=== PATIENT | female | born 1960 | race Caucasian/White ===

== ENCOUNTER 2023-12-30 18:23 | Emergency (ER) | payer SELFPAY ==
[2023-12-30 18:35] VITALS: BP 104/72; PULSE 106; RESP 17; TEMP 37; O2SAT 97; BMI 37.7
--- NOTE | 2023-12-30 18:59 | CTR_ITS ---
PROCEDURE INFORMATION: Exam: CT Head Without Contrast Exam date and time: 12/30/2023 7:11 PM Age: 63 years old Clinical indication: Pain; Headache; Patient HX: [place]TH with general weakness; Additional info: Confusion, headache TECHNIQUE: Imaging protocol: Computed tomography of the head without contrast. Radiation optimization: All CT scans at this facility use at least one of these dose optimization techniques: automated exposure control; mA and/or kV adjustment per patient size (includes targeted exams where dose is matched to clinical indication); or iterative reconstruction. COMPARISON: No relevant prior studies available. RADIATION DOSE METRICS: Total DLP (mGy-cm): 992.48 FINDINGS: Brain: No hemorrhage. No edema. Mild diffuse cerebral atrophy and sequela of chronic small vessel ischemic disease. No mass effect. Cerebral ventricles: No ventriculomegaly. Paranasal sinuses: Visualized sinuses are unremarkable. No fluid levels. Mastoid air cells: Visualized mastoid air cells are well aerated. Bones: Unremarkable. No acute fracture. Soft tissues: Unremarkable. CT/CT head wo con* [id number] IMPRESSION: No acute intracranial abnormality.
--- NOTE | 2023-12-30 18:59 | XRR_ITS ---
PROCEDURE INFORMATION: Exam: XR Chest Exam date and time: 12/30/2023 7:06 PM Age: 63 years old Clinical indication: Patient HX: Dyspnea; Weakness TECHNIQUE: Imaging protocol: Radiologic exam of the chest. Views: 1 view. COMPARISON: No relevant prior studies available. FINDINGS: Lungs: Unremarkable. No consolidation. Pleural spaces: Unremarkable. No pleural effusion. No pneumothorax. Heart/Mediastinum: Unremarkable. No cardiomegaly. Bones/joints: Unremarkable. XR/XR chest 1V portable [id number] IMPRESSION: No acute findings.
--- NOTE | 2023-12-30 19:03 | ED_ITS ---
HPI - Dizziness 2 General: Chief Complaint: Dizziness Stated Complaint: loss of memory dizzy shaky Time Seen by Provider: 12/30/23 18:53 History of Present Illness: HPI Narrative: 63-year-old female visiting from [facility] comes in today for complaints of not feeling well and dizzy. Patient has had prior episodes similar to this no abnormalities have been found. Patient's daughter says that they brought her in due to the onset of the symptoms thinking they could find out what is wrong. Patient appears nontoxic. Patient appears in no pain. Patient has a history of type 2 diabetes mellitus, fibromyalgia, depression, seasonal allergies, COPD, neuropathy, hypothyroidism, GERD. Patient did not check her blood glucose. Review of Systems 2 General: Reports: 10 or more systems reviewed and unremarkable except in HPI and below Neuro: Reports: dizziness Physical Exam 2 Const: COMMON NORMALS: alert HENMT: COMMON NORMALS: normocephalic HEAD & SCALP: normocephalic Neck/C-Spine: COMMON NORMALS: full ROM Chest: COMMONS NORMALS: normal inspection of the chest Resp: COMMON NORMALS: normal respiratory effort Cardio: COMMON NORMALS: regular rate and regular rhythm RATE: regular rate RHYTHM: regular rhythm GI: COMMON NORMALS: Soft to palpation and non-tender PALPATION: Yes Soft to palpation : COMMON NORMALS: Yes no CVA tenderness BLADDER/KIDNEY EXAM: Yes no CVA tenderness Back/Pelvis: COMMON NORMALS: no CVA tenderness Extremity: COMMON NORMALS: full ROM Neuro: SENSORIUM/ORIENTATION: Yes alert Skin: COMMON NORMALS: turgor normal GENERAL SKIN EXAM: turgor normal Course 2 Vital Signs: Vital signs: Vital Signs Temperature 98.6 F 12/30/23 18:35 Pulse Rate 101 H 12/30/23 19:46 Respiratory Rate 17 12/30/23 18:35 Blood Pressure 114/76 12/30/23 19:46 Pulse Oximetry 97 12/30/23 18:35 Oxygen Delivery Me thod Room Air 12/30/23 18:35 MDM - Dizziness Medical Decision Making Patient comes in today for complaints of weakness and dizziness and not feeling right. Patient has had previous episodes similar to this. Patient appears nontoxic. Patient reports no pain. Vital signs are normal. Differential diagnosis includes not limited to migraine headache, diabetes/hypoglycemia, ACS, unlikely stroke syndrome, dehydration, UTI. CBC noted some slight increase white blood cells at 12.8, neutrophils was 7.9, anion gap was 19.9, creatinine is 1.0, glucose was 160, troponin at 2-hour had a -1.6 delta, urinalysis had some increased white blood cells and hyaline casts. Believe patient most likely had some dehydration most likely secondary to her diabetes and traveling. This is increased some hypotension and more dizziness and lightheadedness. CT of the head was negative. Patient was improved after 1 L of IV fluids. Patient was discharged to her home care with recommendations for follow-up or return to the ER. Lab Data 12/30/23 19:25 12/30/23 19:25 Radiology Impressions Chest X-Ray 12/30/23 18:59 IMPRESSION: No acute findings. Head CT 12/30/23 18:59 IMPRESSION: No acute intracranial abnormality. Laboratory Results WBC 12.89 10^3/uL (3.29-11.43) H 12/30/23 19: RBC 5.76 10^6/uL (3.85-5.65) H 12/30/23 19:25 Hgb 15.90 g/dL (11.27-16.99) 12/30/23 19: Hct 49.3 % (36-47) H 12/30/23 19: MCV 85.6 fl (85-98) 12/30/23 19:25 MCH 27.6 pg (27-33) 12/30/23 19: MCHC 32.3 g/dL (30-55) 12/30/23 19: RDW 14.9 % (12.1-15.1) 12/30/23 19: Plt Count 323 10^3/cmm (157-399) 12/30/23 19: MPV 9.3 fL (7.4-10.4) 12/30/23 19: Neut % (Auto) 61.3 % 12/30/23 19: Lymph % (Auto) 28.5 % 12/30/23 19:25 [place] % (Auto) 5.1 % 12/30/23 19:25 Eos % (Auto) 4.0 % 12/30/23: Baso % (Auto) 0.8 % 12/30/23: Neut # (Auto) 7.90 10^3/uL (1.8-7.7) H 12/30/23 19:25 Lymph # (Auto) 3.7 10^3/uL (0.8-4.8) 12/30/23 19:25 [place] # (Auto) 0.7 10^3/uL (0.2-0.9) 12/30/23 19:25 Eos # (Auto) 0.5 10^3/uL (0.0-0.8) 12/30/23 19:25 Baso # (Auto) 0.1 10^3/uL (0.0-0.1) 12/30/23 19:25 Nucleated RBC % (auto) 0 % 12/30/23 19:25 Nucleated RBCs # 0.0 /100WBC 12/30/23 19:25 Sodium 140 mmol/L (136-145) 12/30/23 19:25 Potassium 3.9 mmol/L (3.5-5.1) 12/30/23 19:25 Chloride 100 mmol/L (98-107) 12/30/23 19:25 Carbon Dioxide 24 mmol/L (22-29) 12/30/23 19:25 Anion Gap 19.9 (5-19) H 12/30/23 19:25 BUN 12 mg/dL (8-23) 12/30/23 19:25 Creatinine 1.0 mg/dL (0.5-0.9) H 12/30/23 19:25 GFR Calculation 56.0 mL/min (90-130) L 12/30/23 19:25 Glucose 160 mg/dL (65-115) H 12/30/23 19:25 POC Glucose 167 mg/dL (70-110) H 12/30/23 19:39 Calculated Osmolality 293 mOsm/kg (285-295) 12/30/23 19:25 Calcium 9.2 mg/dL (8.5-10.5) 12/30/23 19:25 Total Bilirubin 0.5 mg/dL (0.15-1.2) 12/30/23 19:25 AST 17 U/L (0-32) 12/30/23 19:25 ALT 14 U/L (0-33) 12/30/23 19:25 Alkaline Phosphatase 92 U/L (35-105) 12/30/23 19:25 Troponin T Baseline 15 ng/L (0-10) H 12/30/23 19:25 Troponin T 120 Minute 13.40 ng/L (0-10) H 12/30/23 20:50 Delta Troponin T -1.60 ABS# (0-10) L 12/30/23 20:50 Total Protein 7.7 g/dL (6.6-8.7) 12/30/23 19:25 Albumin 4.4 g/dL (3.5-5.2) 12/30/23 19:25 Globulin 3.3 g/dL (1.3-4.6) 12/30/23 19:25 TSH 3.11 uIU/mL (0.27-4.20) 12/30/23 19:25 Urine Color Yellow (Yellow) 12/30/23 21:42 Urine Appearance Clear (CLEAR) 12/30/23 21:42 Urine pH 5 (5-7) 12/30/23 21:42 Ur Specific [place] 1.005 (1.005-1.030) 12/30/23 21:42 Urine Protein Trace (Negative) 12/30/23 21:42 Urine Glucose (UA) Norm (Normal) 12/30/23 21:42 Urine Ketones 1+ (Negative) H 12/30/23 21:42 Urine Blood 2+ (Negative) H 12/30/23 21:42 Urine Nitrate Negative (Negative) 12/30/23 21:42 Urine Bilirubin 1+ (Negative) H 12/30/23 21:42 Urine Urobilinogen 1 mg/dL (Negative) H 12/30/23 21:42 Ur Leukocyte Esterase Negative (Negative) 12/30/23 21:42 Urine RBC 5-10 /hpf (0-2) H 12/30/23 21:42 Urine WBC 0-4 /hpf (0-5) H 12/30/23 21:42 Ur Squamous Epith Cells 3-5 /hpf (0-5) 12/30/23 21:42 Amorphous Sediment Not Reportable 12/30/23 21:42 Urine Bacteria Trace /hpf (NONE) 12/30/23 21:42 Hyaline Casts 5-10 /lpf H 12/30/23 21:42 Urine Mucus Trace /hpf 12/30/23 21:42 Serum Ketones Negative (Negative) 12/30/23 19:25 All radiology interpretation(s) finalized by discharge EKG Data EKG 1: I personally reviewed and interpreted this EKG as follows: EKG interpretation date: 12/30/23 EKG interpretation time: 19:30 Prior EKG tracings: not available for review Interpretation: EKG shows a sinus rhythm with a regular rate at [address] elevation or ectopy is noted. No prior exams available for comparison. EKG was reviewed by Dr. Landaverde for STEMI. Computer generated interpretation: Sinus tachycardia, left axis deviation, pattern consistent with pulmonary disease, abnormal EKG, unconfirmed report. EKG 2: I personally reviewed and interpreted this EKG as follows: EKG interpretation date: 12/30/23 EKG interpretation time: 21:05 Interpretation: EKG shows a sinus rhythm with a regular rate of [address] elevation or ectopy is noted. Compared to prior exams rate is slow at 85 beats but no other significant changes. Computer generated interpretation: Sinus rhythm, left axis deviation, nonspecific T wave abnormality, abnormal EKG, unconfirmed report. 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 3 plenty of water and fluids. Follow-up with primary care for further instructions. Return to ED for any concerns. Thank you for choosing [facility] for your healthcare needs today. Please realize that you were seen in the emergency department and that we are providing you with an emergency medical screening exam and this may not be a complete and all exclusive of all testing and/or medical workup we may need to determine your element or severity of your illness. It is very important that you follow-up as instructed with your primary care provider or specialist for the additional evaluation and to discuss your medical treatment plan. You may return to the emergency department should you have concerns or if your condition changes or worsens in any way. Coding Level of Care Code ED Chemical Weigher for Artem Knight
--- NOTE | 2023-12-30 19:21 | ECG_ITS ---
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 Measurements Intervals [place] Rate: 100 P: 39 NC: 149 QRS: -35 QRSD: 97 T: 72 QT: 365 QTc: 471 Interpretive Statements SINUS TACHYCARDIA LEFT AXIS DEVIATION [QRS AXIS < -30] PATTERN CONSISTENT WITH PULMONARY DISEASE No previous ECG available for comparison Electronically Signed On 12-31-2023 9:22:12 CDT by Leroy Hensley M.D. [id number]
[2023-12-30 19:35] LABS: Basophils # 0.1 10^3/uL (0.0-0.1); Basophils % 0.8 %; Eosinophils # 0.5 10^3/uL (0.0-0.8); Hematocrit 49.3 % (36-47); Lymphocytes # 3.7 10^3/uL (0.8-4.8); Lymphocytes % 28.5 %; Mean Corpuscular HGB Conc 32.3 g/dL (30-55); Mean Corpuscular Hemoglobin 27.6 pg (27-33); Mean Corpuscular Volume 85.6 fl (85-98); Mean Platelet Volume 9.3 fL (7.4-10.4); Monocytes # 0.7 10^3/uL (0.2-0.9); Monocytes % 5.1 %; Neutrophils % 61.3 %; Nucleated Red Blood Cells % 0 %; Platelet Count 323 10^3/cmm (157-399); Red Blood Count 5.76 10^6/uL (3.85-5.65); Red Cell Distribution Width 14.9 % (12.1-15.1); White Blood Count 12.89 10^3/uL (3.29-11.43)
[2023-12-30 19:46] VITALS: BP 104/73; BP 114/76; BP 92/59; PULSE 101; PULSE 105; PULSE 107
[2023-12-30 19:47] LABS: Glucose Point of Care 167 mg/dL (70-110)
[2023-12-30 19:56] LABS: Troponin(5th) Baseline 15 ng/L (0-10)
[2023-12-30] MEDS: sodium chloride 0.9% 1,000 ML 999 ML IV (20:00)
[2023-12-30 20:07] LABS: Alanine Aminotransferase 14 U/L (0-33); Albumin Level 4.4 g/dL (3.5-5.2); Alkaline Phosphatase 92 U/L (35-105); Anion Gap 19.9 (5-19); Aspartate Amino Transferase 17 U/L (0-32); Blood Urea Nitrogen 12 mg/dL (8-23); Calcium 9.2 mg/dL (8.5-10.5); Carbon Dioxide 24 mmol/L (22-29); Chloride 100 mmol/L (98-107); Creatinine Clr Calc Pharmacy 63.7101; Globulin 3.3 g/dL (1.3-4.6); Glucose 160 mg/dL (65-115); Osmolality Calculated 293 mOsm/kg (285-295); Potassium 3.9 mmol/L (3.5-5.1); Sodium 140 mmol/L (136-145); Thyroid Stimulating Hormone 3.11 uIU/mL (0.27-4.20); Total Bilirubin 0.5 mg/dL (0.15-1.2); Total Protein 7.7 g/dL (6.6-8.7)
[2023-12-30 20:10] LABS: Ketone (Acetest) Serum Negative (Negative)
--- NOTE | 2023-12-30 21:02 | ECG_ITS ---
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 Measurements Intervals [place] Rate: 85 P: 42 [place]: 143 QRS: -31 QRSD: 106 T: 72 QT: 371 QTc: 443 Interpretive Statements SINUS RHYTHM LEFT AXIS DEVIATION [QRS AXIS < -30] NONSPECIFIC T-WAVE ABNORMALITY Compared to ECG 12/30/2023 19:21:57 T-wave abnormality now present Sinus tachycardia no longer present Electronically Signed On 12-31-2023 9:23:55 CDT by Leroy Hensley M.D. [id number]
[2023-12-30 22:13] LABS: Add Urine Microscopic? YES; Bacteria Urine TRACE /hpf; Bilirubin Urine 1+ (Negative); Blood Urine 2+ (Negative); Glucose Urine UA Norm (Normal); Ketones Urine 1+ (Negative); Leukocyte Esterase Urine Negative (Negative); Nitrate Urine Negative (Negative); Protein Urine Trace (Negative); Specific Gravity, Urine 1.005 (1.005-1.030); Urine Appearance Clear (CLEAR); Urine Color Yellow (Yellow); Urobilinogen Urine 1 mg/dL (Negative); WBC Urine 0-4 /hpf (0-5); pH Urine 5 (5-7)
[2023-12-30 22:14] LABS: Mucus Urine TRACE /hpf
[2023-12-30 22:32] VITALS: BP 106/73; PULSE 98; RESP 16; TEMP 37; O2SAT 96
== END 2023-12-30 22:29 | disposition home or self-care (01) ==
PROVIDERS: Emergency Provider Nurse Practitioner Family
DX: R42 Dizziness and giddiness (principal); E86.0 Dehydration; R00.0 Tachycardia, unspecified; R94.31 Abnormal electrocardiogram [ECG] [EKG]; J44.9 Chronic obstructive pulmonary disease, unspecified; E11.40 Type 2 diabetes mellitus with diabetic neuropathy, unspecified
CPT/HCPCS: 36415; 36416; 70450; 71045; 80053; 81001; 82009; 82962; 84443; 84484; 85025; 93005; 99285; J7030